=== PATIENT | male | born 1970 | race Caucasian/White ===

== ENCOUNTER → 2018-06-09 | Outpatient (REF) | payer OTHER ==
[2018-06-11 08:06] LABS: LDL DIRECT 77 mg/dL (0-99)
== END ==
LOC: M LAB REF 17:23
DX: E11.21 Type 2 diabetes mellitus with diabetic nephropathy (principal)
CPT/HCPCS: 83721

== ENCOUNTER 2019-08-27 07:46 | Day surgery (SDC) | payer OTHER ==
[~2019-08-27] VITALS: Ht 182.9 cm; Wt 114.3 kg
[~2019-08-27 07:46] MED LIST: INVO300T; LIDOCAINE 2% INJ 100 MG/5 ML SDV (FOR ANES.) As Ordered ONE; METF500T13 PO; NS 1,000 ML IV ONE; RAMI1CAP24; propofoL 200 MG/20 ML VIAL As Ordered ONE
--- NOTE | 2019-08-27 10:21 | ROOR ---
Patient Name: Alexandrea Copeland Procedure Date: 08/27/2019 10:02 AM Date of : 1970 Age: 48 Room: [facility] Gender: Male Note Status: Finalized Procedure: Total Colonoscopy to Cecum Indications: High risk colon cancer surveillance: Personal history of colonic polyps, Last colonoscopy: 2015 Providers: Teo Ugarte MD Referring MD: CRISTIAN SAHNI JR, MD Requesting Provider: Medicines: Monitored Anesthesia Care Complications: No immediate complications. Procedure: Pre-Anesthesia Assessment: - The heart rate, respiratory rate, oxygen saturations, blood pressure, adequacy of pulmonary ventilation, and response to care were monitored throughout the procedure. The Colonoscope was introduced through the anus and advanced to the cecum, identified by appendiceal orifice and ileocecal valve. The colonoscopy was performed without difficulty. The patient tolerated the procedure well. The quality of the bowel preparation was excellent. Findings: The perianal and digital rectal examinations were normal. Non-bleeding internal hemorrhoids were found during retroflexion. The hemorrhoids were small and Grade I (internal hemorrhoids that do not prolapse). No other significant abnormalities were identified in a careful examination of the remainder of the colon. The exam was otherwise without abnormality on direct and retroflexion views. Impression: - Non-bleeding internal hemorrhoids. - The examination was otherwise normal on direct and retroflexion views. - No specimens collected. - The exam was otherwise normal to the cecum. Recommendation: - Patient has a contact number available for emergencies. The signs and symptoms of potential delayed complications were discussed with the patient. Return to normal activities tomorrow. Written discharge instructions were provided to the patient. - High fiber diet. - Discharge patient to home. - Continue present medications. - Repeat colonoscopy in 5 years for surveillance. - Return to referring physician. - The findings and recommendations were discussed with the patient's family. Teo Ugarte MD Teo Ugarte MD 08/27/2019 10:21:36 AM Electronically signed by Teo Ugarte MD Number of Addenda: 0 Note Initiated On: 08/27/2019 10:02 AM Estimated Blood Loss: Estimated blood loss: none.
[2019-08-27 10:42] VITALS: BP 138/92
== END 2019-08-27 10:43 | disposition home or self-care (01) ==
LOC: M OPP 07:46
PROVIDERS: ATTEND Internal Medicine Gastroenterology
DX: Z12.11 Encounter for screening for malignant neoplasm of colon (principal); Z86.010 Personal history of colon polyps; K64.0 First degree hemorrhoids; E11.9 Type 2 diabetes mellitus without complications; Z79.84 Long term (current) use of oral hypoglycemic drugs; Z79.899 Other long term (current) drug therapy

== ENCOUNTER → 2021-03-12 | Outpatient (REF) | payer OTHER ==
[~2021-03-12] MED LIST changes: -LIDOCAINE 2% INJ 100 MG/5 ML SDV (FOR ANES.) As Ordered ONE; -NS 1,000 ML IV ONE; -propofoL 200 MG/20 ML VIAL As Ordered ONE
[2021-03-13 05:07] LABS: LDL DIRECT 100 mg/dL (0-99)
== END ==
LOC: M LAB REF 11:42
PROVIDERS: ATTEND Internal Medicine
DX: E78.00 Pure hypercholesterolemia, unspecified (principal); E11.65 Type 2 diabetes mellitus with hyperglycemia

== ENCOUNTER → 2021-09-17 | Outpatient (REF) | payer OTHER | LOC: M LAB REF 11:49 | PROVIDERS: ATTEND Internal Medicine | DX: N52.9 Male erectile dysfunction, unspecified (principal); E78.00 Pure hypercholesterolemia, unspecified ==

== ENCOUNTER → 2022-03-26 | Outpatient (REF) | payer OTHER | LOC: M LAB REF 16:05 | PROVIDERS: ATTEND Internal Medicine | DX: E11.65 Type 2 diabetes mellitus with hyperglycemia (principal); E78.00 Pure hypercholesterolemia, unspecified ==

== ENCOUNTER → 2023-11-25 | Outpatient (REF) | payer OTHER ==
[~2023-11-25] MED LIST changes: -RAMI1CAP24; +RAMI5CAP60
[2023-11-25 13:54] LABS: IRON (FE) 69 UG/DL (65-175); PERCENT SATURATION 21.4 % (19.7-50.0); TOTAL IRON BINDING CAPACITY 322 UG/DL (250-425)
[2023-11-25 13:55] LABS: FERRITIN 140.3 NG/ML (10.5-307.3)
[2023-11-25 14:08] LABS: HEPATITIS B SURFACE ANTIGEN NEGATIVE (NEGATIVE)
[2023-11-25 14:29] LABS: HEPATITIS C VIRUS ABY INDEX < 0.02 INDEX (<0.8)
[2023-11-25 14:30] LABS: HEPATITIS B CORE ANTIBODY IGM NEGATIVE (NEGATIVE)
== END ==
LOC: M LAB REF 13:00
PROVIDERS: ATTEND Internal Medicine
DX: K74.02 Hepatic fibrosis, advanced fibrosis (principal); K76.0 Fatty (change of) liver, not elsewhere classified

== ENCOUNTER → 2024-06-08 | Outpatient (REF) | payer OTHER | LOC: M LAB REF 13:28 | PROVIDERS: ATTEND Internal Medicine | DX: K74.02 Hepatic fibrosis, advanced fibrosis (principal) ==

== ENCOUNTER → 2025-02-14 | Outpatient (CLI) | payer OTHER | LOC: M RAD 09:07 | PROVIDERS: ATTEND Internal Medicine | DX: K74.00 Hepatic fibrosis, unspecified (principal); K75.81 Nonalcoholic steatohepatitis (NASH) ==